=== PATIENT | male | born 1945 | race African-American/Black ===

== ENCOUNTER 2017-01-02 09:25 | Day surgery (SDC) | payer MEDICARE, OTHER ==
--- NOTE | ~2017-01-02 | EGD ---
EGD REPORT [facility] [address] [place] [address] NAME: LIANG SALAZAR : [birth year] STATUS : REG [facility] [place] PAT#: [id number] AGE: 71 ADM/REG DATE : 01/02/17 MR#: [id number] REPORT SERV DATE: 01/02/17 DICTATED BY: MILTON LAFLEUR DATE: 01/02/17 REPORT STATUS : Draft TRANSCRIBED BY: [facility] DATE: 01/02/17 [facility] Patient Name: Liang Salazar Date of : 1945 Attending MD: MILTON LAFLEUR MD Procedure Date No Time: 01/02/2017 Procedure: Colonoscopy Indications: High risk colon cancer surveillance: Personal history of colonic polyps Referring MD: STANLEY DOMINGUEZ Medicines: Monitored Anesthesia Care Complications: No immediate complications. Procedure: Pre-Anesthesia Assessment: - ASA Grade Assessment: III - A patient with severe systemic disease. After I obtained informed consent, the scope was passed under direct vision. Throughout the procedure, the patient's blood pressure, pulse, and oxygen saturations were monitored continuously. The CF [id number] was introduced through the anus and advanced to the cecum, identified by the appendiceal orifice. The colonoscopy was unusually difficult due to inadequate bowel prep, significant looping and a tortuous colon. Successful completion of the procedure was aided by applying abdominal pressure. The patient tolerated the procedure well. The quality of the bowel preparation was poor. Findings: The digital rectal exam was normal. Pertinent negatives include no palpable rectal lesions. Multiple diverticula were found in the sigmoid colon and in the descending colon. A moderate amount of stool was found in the entire colon, interfering with visualization. Lavage of the area was performed, resulting in incomplete clearance with continued poor visualization. Hemorrhoids were found during retroflexion and were mild. Impression: - Preparation of the colon was poor. - Diverticulosis in the sigmoid colon and in the descending colon. - Stool in the entire examined colon. Recommendation: - Patient has a contact number available for emergencies. The signs and symptoms of potential delayed complications were discussed with the patient. Return to EGD REPORT [address] [address] NAME: LIANG SALAZAR : [birth year] STATUS : REG [facility] [place] PAT#: [id number] AGE: 71 ADM/REG DATE : 01/02/17 MR#: [id number] REPORT SERV DATE: 01/02/17 DICTATED BY: MILTON LAFLEUR DATE: 01/02/17 REPORT STATUS : Draft TRANSCRIBED BY: [employer] DATE: 01/02/17 normal activities tomorrow. Written discharge instructions were provided to the patient. - Regular diet. - Continue present medications. - Repeat colonoscopy at the next available appointment because the bowel preparation was suboptimal. - Use constipation prep for next exam. Procedure Code(s): --- Professional --- 31541, Colonoscopy, flexible, proximal to splenic flexure; diagnostic, with or without collection of specimen(s) by brushing or washing, with or without colon decompression (separate procedure) Diagnosis Code(s): --- Professional --- K57.30, Diverticulosis of large intestine without perforation or abscess without bleeding Z86.010, Personal history of colonic polyps CPT copyright 2013 [employer]. All rights reserved. The codes documented in this report are preliminary and upon leather scraper review may be revised to meet current compliance requirements. MILTON LAFLEUR MD 01/02/2017 12:27 PM This report has been signed electronically. Number of Addenda: 0 Note Initiated On: 01/02/2017 11:56 AM [address] [address]
[~2017-01-02 09:25] MED LIST: ACET500CAP PO; AMB10 PO; ASAB PO; B12100T PO; DIOVAN320 MG PO; FISH-EPA1000 MG PO; GLUCOTROL5 PO; KLOR-CON 1010 MEQ PO; LOZOLTAB PO; METANX PO; METFORMIN HCL PO; NEUR600 PO; NOR25 PO; NORV10 PO; VITAMIN D1000 UNI1 PO; Z300 PO; ZOCOR20 PO; ZOLPIDEM TARTRATE PO
== END 2017-01-02 23:59 | disposition home or self-care (01) ==
LOC: DMU 09:25
PROVIDERS: Internal Medicine Gastroenterology
PROC: 0DJD8ZZ Inspection of Lower Intestinal Tract, Via Natural or Artificial Opening Endoscopic (ICD-10-PCS; principal; 2017-01-02 11:00)
DX: Z12.11 Encounter for screening for malignant neoplasm of colon (principal); Z86.010 Personal history of colon polyps; K57.30 Diverticulosis of large intestine without perforation or abscess without bleeding; K64.9 Unspecified hemorrhoids; I12.9 Hypertensive chronic kidney disease with stage 1 through stage 4 chronic kidney disease, or unspecified chronic kidney disease; N18.9 Chronic kidney disease, unspecified; E11.22 Type 2 diabetes mellitus with diabetic chronic kidney disease; E11.42 Type 2 diabetes mellitus with diabetic polyneuropathy; E78.00 Pure hypercholesterolemia, unspecified; G47.33 Obstructive sleep apnea (adult) (pediatric); M10.9 Gout, unspecified; M19.90 Unspecified osteoarthritis, unspecified site; Z85.46 Personal history of malignant neoplasm of prostate; Z99.89 Dependence on other enabling machines and devices; Z91.040 Latex allergy status; Z91.048 Other nonmedicinal substance allergy status; Z79.82 Long term (current) use of aspirin; Z79.84 Long term (current) use of oral hypoglycemic drugs; Z79.899 Other long term (current) drug therapy
CPT/HCPCS: 82962